=== PATIENT | male | born 1990 | race American Indian/Alaskan Native ===

== ENCOUNTER 2016-11-14 13:27 | Emergency (ER) | payer SELFPAY ==
[2016-11-14 13:39] VITALS: BP 112/59
--- NOTE | 2016-11-14 17:45 | Emergency Department Report ---
ED Upper Extremity Inj HPI - General Chief Complaint: Extremity Injury, Upper Stated Complaint: POSS FRACTURE HAND Time Seen by Provider: 11/14/16 17:43 Source: patient Mode of arrival: Ambulatory Limitations: No Limitations - History of Present Illness Initial Comments: Patient reports right hand pain with swelling that started 2 weeks ago after he punched a wall Complaint: Injury to:: right, hand Onset/Timin -: week(s) Other Extremity Injury: Hand: Right Other Injuries: none Handedness: right Place: home Severity scale (0 -10): 8 Improves With: rest Worsens With: movement of extremity Context: direct blow Associated Symptoms: denies other symptoms. denies: weakness, numbness, neck pain, suspects foreign body, nausea/vomiting, heard/felt popping sensat Treatments Prior to Arrival: other (none) - Related Data Previous Rx's Medication Instructions Recorded Last Taken Type HYDROcodone/APAP 5-325 [[place] 1 each PO Q6HR PRN #12 tablet 11/14/16 Unknown Rx 5/325] Ibuprofen [Motrin 800 MG tab] 800 mg PO Q8HR PRN #30 tablet 11/14/16 Unknown Rx Allergies Allergy/AdvReac Type Severity Reaction Status Date / Time No Known Allergies Allergy Unverified 11/14/16 13:34 ED Review of Systems ROS: Stated complaint: POSS FRACTURE HAND Other details as noted in HPI Constitutional: denies: chills, diaphoresis, fever, malaise, weakness Respiratory: denies: cough, orthopnea, shortness of breath, SOB with exertion, SOB at rest, stridor, wheezing Cardiovascular: denies: chest pain, palpitations, dyspnea on exertion, orthopnea , edema, syncope, paroxysmal nocturnal dyspnea Musculoskeletal: arthralgia (right hand). denies: back pain, joint swelling, myalgia Neurological: denies: headache, weakness, numbness, paresthesias, confusion, abnormal gait, vertigo Hematological/Lymphatic: denies: easy bleeding, easy bruising, swollen glands ED Past Medical Hx - Medications Home Medications: Home Medications Medication Instructions Recorded Confirmed Last Taken Type HYDROcodone/APAP 5-325 [[place] 1 each PO Q6HR PRN #12 tablet 11/14/16 Unknown Rx 5/325] Ibuprofen [Motrin 800 MG tab] 800 mg PO Q8HR PRN #30 tablet 11/14/16 Unknown Rx ED Physical Exam - General Limitations: No Limitations General appearance: alert, in no apparent distress - ENT ENT exam: Present: normal exam, mucous membranes moist. Absent: mucous membranes dry - Respiratory Respiratory exam: Present: normal lung sounds bilaterally. Absent: respiratory distress, wheezes, rales, rhonchi, stridor, chest wall tenderness, accessory muscle use, decreased breath sounds, prolonged expiratory - Cardiovascular Cardiovascular Exam: Present: regular rate, normal rhythm, normal heart sounds. Absent: systolic murmur, diastolic murmur, rubs, gallop, clicks, JVD, S3, S4 - Extremities Exam Extremities exam: Present: normal inspection, full ROM, normal capillary refill. Absent: tenderness, pedal edema, joint swelling, calf tenderness - Expanded Upper Extremity Exam Right Forearm Wrist exam: Present: normal inspection, full ROM. Absent: tenderness, swelling, abrasion, laceration, ecchymosis, deformity, crepidus, dislocation, erythema, tenderness over anatomical snuff box, pain with axial thumb loading Hand Wrist exam: Present: normal inspection, full ROM, tenderness (with palpation to proximal fifth metaphalanx and rosas area), swelling (minimal to dorsum). Absent: abrasion, laceration, ecchymosis, deformity, crepidus, dislocation, erythema, amputation, nail avulsion, subungual hematoma Neuro motor exam: Present: wrist extension intact, thumb opposition intact, thumb IP flexion intact, thumb adduction intact, fingers 2-5 abduction intact, other (FDP and FDS intact and present) Neurosensory exam: Present: 2-point discrimination, radial nerve intact, ulnar nerve intact, median nerve intact Vascular: Present: normal capillary refill, radial pulse (2+), brachial pulse (2 +), ulnar pulse (2+). Absent: vascular compromise, Pallo, pulse deficit radial art, pulse deficit ulnar art, pulse deficit brachial art - Neurological Exam Neurological exam: Present: alert, oriented X3, CN II-XII intact, normal gait, reflexes normal. Absent: motor sensory deficit - Skin Skin exam: Present: warm, dry, intact, normal color. Absent: rash ED Course Vital Signs 11/14/16 13:35 Temperature 98.2 F Pulse Rate 70 Respiratory 16 Rate Blood Pressure 112/59 O2 Sat by Pulse 100 Oximetry - Reevaluation(s) Reevaluation #1: 01/15/17 18:27 radiology studies ordered Reevaluation #2: 11/14/16 18:39 ulnar gutter splint, analgesic and pain medication ordered ED Medical Decision Making - Lab Data Vital Signs 11/14/16 13:35 Temperature 98.2 F Pulse Rate 70 Respiratory 16 Rate Blood Pressure 112/59 O2 Sat by Pulse 100 Oximetry - Radiology Data Radiology results: image reviewed EXAM: XR HAND 3 RT HISTORY: right hand pain/punched a wall COMPARISON: None available. FINDINGS: Five total images of right hand obtained. Oblique partially comminuted fracture of the 5th metacarpal neck. Minimal anterior angulation of the metacarpal head. Joint spaces are preserved. Remaining bony structures are intact. IMPRESSION: Posttraumatic fracture of the 5th metacarpal neck. - Medical Decision Making During the course of ED, pain medication, analgesics and radiology studies were ordered. The imaging study revealed posttraumatic fracture of the 5th metacarpal neck. Patient was placed in a right ulnar gutter splint. He was sent home with prescription for [place] and Ibuprofen, instructed to follow up with selective referrals given at discharge, he verbalizes understanding - Differential Diagnosis Fifth Metacarpel Neck Fracture, Right Hand Pain Critical care attestation.: If time is entered above; I have spent that time in minutes in the direct care of this critically ill patient, excluding procedure time. ED Disposition Clinical Impression: Fracture of fifth metacarpal bone of right hand Qualifiers: Encounter type: initial encounter Fracture type: closed Metacarpal location: neck Fracture alignment: nondisplaced Qualified Code(s): S62.366A - Nondisplaced fracture of neck of fifth metacarpal bone, right hand, initial encounter for closed fracture Disposition: DISCHARGED TO HOME OR SELFCARE Is pt being admited?: No Does the pt Need Aspirin: No Condition: Stable Instructions: Hand Fracture (ED) Additional Instructions: Take medication as directed. No drinking, driving or operating heavy machinery while taking pain medication. Follow-up with the selective referrals given at discharge. Return back to the ED for worsening symptoms or concerns Prescriptions: Ibuprofen [Motrin 800 MG tab] 800 mg PO Q8HR PRN #30 tablet PRN Reason: Pain, Moderate (4-6) HYDROcodone/APAP 5-325 [[place] 5/325] 1 each PO Q6HR PRN #12 tablet PRN Reason: Pain , Severe (7-10) Referrals: PRIMARY CAREMD [Primary Care Provider] - 3-5 Days GISELL NAVARRO MD [Staff Physician] - 3-5 Days ARNAV MORA MD [Staff Physician] - 3-5 Days Forms: Work/School Release Form(ED) Time of Disposition: 19:28
[2016-11-14] MEDS ORDERED: NORCO 5/325 PO ONE (18:38)
[2016-11-14] MEDS ORDERED: MOTRIN PO ONE (18:39)
--- NOTE | 2016-11-14 19:17 | XRay Report ---
FINAL REPORT EXAM: XR HAND 3 RT HISTORY: right hand pain/punched a wall COMPARISON: None available. FINDINGS: Five total images of right hand obtained. Oblique partially comminuted fracture of the 5th metacarpal neck. Minimal anterior angulation of the metacarpal head. Joint spaces are preserved. Remaining bony structures are intact. IMPRESSION: Posttraumatic fracture of the 5th metacarpal neck.
== END 2016-11-14 20:27 | disposition home or self-care (01) ==
LOC: ED 13:27
DX: S62.366A Nondisplaced fracture of neck of fifth metacarpal bone, right hand, initial encounter for closed fracture (principal); W22.01XA Walked into wall, initial encounter; Y93.9 Activity, unspecified; Y92.9 Unspecified place or not applicable; Y99.9 Unspecified external cause status

== ENCOUNTER 2019-08-21 15:48 | Emergency (ER) | payer SELFPAY ==
[2019-08-21 16:09] VITALS: BP 137/93
--- NOTE | 2019-08-21 16:22 | Emergency Department Report ---
Chief Complaint: Dental/Oral Stated Complaint: HARD TO SWOLLOW Time Seen by Provider: 08/21/19 16:13 - HPI History of Present Illness: This is a 29-year-old male who presents to the ED with complaint of toothache. Reports tooth broke months ago and never followed up with a dentist. Patient denies any facial swelling, fever, chills, headache, nausea, vomiting, chest pain or SOB. - ROS Review of Systems: Constitutional: denies: chills, fever ENT: dental pain. denies: ear pain, throat pain Respiratory: denies: cough, shortness of breath, wheezing Cardiovascular: denies: chest pain, palpitations Gastrointestinal: denies: abdominal pain, nausea, diarrhea Skin: denies: rash, lesions Neurological: denies: headache, weakness, paresthesias Psychiatric: denies: anxiety, depression - Exam Vital Signs: Vital Signs 08/21/19 15:53 Temperature 98.6 F Pulse Rate 67 Respiratory 19 Rate Blood Pressure 137/93 O2 Sat by Pulse 98 Oximetry Physical Exam: General appearance: alert, in no apparent distress ENT exam: Present: normal orophraynx, mucous membranes moist, TM's normal bilaterally, other (#30 partial tooth with dental caries lateral tooth, nonfluctuant gingiva swelling, erythema, and tenderness. Neck exam: Present: anterior cervical lymphadnopathy, tenderness, and mobile Respiratory exam: Present: normal lung sounds bilaterally. Absent: respiratory distress Cardiovascular Exam: Present: regular rate, normal rhythm. Absent: systolic murmur, diastolic murmur, rubs, gallop GI/Abdominal exam: Present: soft, normal bowel sounds Neurological exam: Present: alert, oriented X3 Psychiatric exam: Present: normal affect, normal mood Skin exam: Present: warm, dry, intact, normal color. Absent: rash MSE screening note: Focused history and physical exam performed. Due to findings the following was ordered: ED Medical Decision Making - Medical Decision Making Patient is stable and was examined by me. Susceptible of dental pain and dental fracture #30. Discussed plan with patient. He agreed with ER plan. Discharged home with amoxicillin, ibuprofen, and Tylenol #3. Follow up with dentist and referral to emergency dental clinics. ED Disposition for MSE Clinical Impression: Tooth ache, Dental caries Fracture, tooth Qualifiers: Encounter type: initial encounter Fracture type: closed Qualified Code(s): S02.5XXA - Fracture of tooth (traumatic), initial encounter for closed fracture Disposition: TO HOME OR SELFCARE Is pt being admited?: No Condition: Stable Instructions: Dental Caries (ED), Toothache (ED) Additional Instructions: Follow-up with a primary care doctor in 3-5 days or if symptoms worsen and continue return to the emergency department as soon as possible. Prescriptions: Ibuprofen [Motrin 800 MG tab] 800 mg PO Q8HR PRN #20 tablet PRN Reason: Pain, Moderate (4-6) Amoxicillin [Trimox CAP] 500 mg PO BID #14 capsule Acetaminophen/Codeine [Tylenol /Codeine # 3 tab] 1 tab PO Q6H PRN #12 tab PRN Reason: Pain , Severe (7-10) Referrals: [facility] [Outside] - 3-[address] [facility] [Outside] - 3-[address] [facility] [Outside] - 3-5 Days Time of Disposition: 16:35
== END 2019-08-21 16:50 | disposition home or self-care (01) ==
LOC: ED 15:48
DX: S02.5XXA Fracture of tooth (traumatic), initial encounter for closed fracture (principal); K02.9 Dental caries, unspecified; X58.XXXA Exposure to other specified factors, initial encounter; Y93.89 Activity, other specified; Y92.89 Other specified places as the place of occurrence of the external cause; Y99.8 Other external cause status
CPT/HCPCS: 99282